=== PATIENT | male | born 1975 | race Caucasian/White ===

== ENCOUNTER 2016-12-21 22:57 | Observation (INO) | payer SELFPAY ==
[~2016-12-21] VITALS: Ht 180.3 cm; Wt 100.0 kg
[~2016-12-21 22:57] MED LIST: CYCL-36 PO; NAPR550 PO; Z.0.NO CURRENT MEDS
[2016-12-21 23:00] VITALS: BP 134/93; PULSE 74; RESP 16; TEMP 98.2; O2SAT 96
[2016-12-21] MEDS ORDERED: NITROGLYCERIN 0.4 MG SL 25 TABS/BTL SL ONE (23:45)
[2016-12-21] MEDS ORDERED: SODIUM CHLORIDE 0.9% FLUSH 10 ML FLUSH IVF PRN (23:45)
[2016-12-21] MEDS ORDERED: NITROGLYCERIN 2% OINT 1 GM PACKET TOP ONE (23:45)
[2016-12-21] MEDS ORDERED: ASPIRIN 81 MG CHEW TAB PO ONE (23:45)
[2016-12-22] VITALS (8 sets, daily range): BP systolic 98–126; BP diastolic 60–78; PULSE 55–76; RESP 16–20; TEMP 96.2–98.6; O2SAT 94–99
[2016-12-22] MEDS ORDERED: LISI-515 PO ×2 (00:14→12:06)
[2016-12-22] MEDS ORDERED: METO25TA3 PO (00:14)
[2016-12-22 00:35] LABS: AUTOMATED NEUTROPHIL # 6.6 TH/MM3 (1.8-7.7); BASOPHIL # 0.1 TH/MM3 (0-0.2); EOSINOPHIL # 0.1 TH/MM3 (0-0.4); EOSINOPHIL % 1.1 % (0.0-4.0); HEMATOCRIT 45.2 % (39.0-51.0); HEMO FLAGS DIFF FINAL; LYMPH % 38.5 % (9.0-44.0); LYMPHOCYTE # 4.7 TH/MM3 (1.0-4.8); MEAN CELL VOLUME 83.1 FL (80.0-100.0); MEAN CORPUSCULAR HEMOGLOBIN 29.2 PG (27.0-34.0); MEAN CORPUSCULAR HGB CONC 35.2 % (32.0-36.0); MONO % 5.4 % (0.0-8.0); PLATELET COUNT 228 TH/MM3 (150-450); RED BLOOD COUNT 5.44 MIL/MM3 (4.50-5.90); RED CELL DISTRIBUTION WIDTH 13.9 % (11.6-17.2); WHITE BLOOD COUNT 12.2 TH/MM3 (4.0-11.0)
[2016-12-22 00:52] LABS: ALT (GPT) 37 U/L (12-78); ANION GAP 9 MEQ/L (5-15); AST (GOT) 16 U/L (15-37); BLOOD UREA NITROGEN 7 MG/DL (7-18); CHLORIDE 104 MEQ/L (98-107); GLOMERULAR FILTRATION RATE 92 ML/MIN (>89); MAGNESIUM 1.9 MG/DL (1.5-2.5); POTASSIUM 3.7 MEQ/L (3.5-5.1); SODIUM (NA) 139 MEQ/L (136-145)
[2016-12-22 00:56] LABS: ALKALINE PHOSPHATASE 76 U/L (45-117); TOTAL BILIRUBIN ADULT 1.2 MG/DL (0.2-1.0)
--- NOTE | 2016-12-22 00:56 | RADRPT ---
EXAM DATE/TIME: 12/22/2016 00:06 [facility] COMPARISON: No previous studies available for comparison. INDICATIONS : Chest pain. MEDICAL HISTORY : None. SURGICAL HISTORY : None. ENCOUNTER: Initial ACUITY: 1 day PAIN SCORE: 7/10 LOCATION: Bilateral chest FINDINGS: A single view of the chest demonstrates the lungs to be symmetrically aerated without evidence of mas s, infiltrate or effusion. The cardiomediastinal contours are unremarkable. Osseous structures are intact. CONCLUSION: No acute disease. Kyle Martinez MD on December 22, 2016 at 0:54 Board Certified Radiologist. This report was verified electronically.
[2016-12-22 00:59] LABS: CREATINE KINASE 80 U/L (39-308)
[2016-12-22 01:20] LABS: APTT (PATIENT) 26.3 SEC (24.3-30.1)
--- NOTE | 2016-12-22 02:56 | PD ---
HPI Chief Complaint: Chest Pain Time Seen by Provider: 23:39 Travel History International Travel<30 days: No Contact w/Intl Traveler<30days: No Traveled to known affect area: No History of Present Illness HPI The patient is a 41 year old male who presents to the [facility] emergency department with a history of chest pain that began earlier today and has been coming and going. He reports that it began approximately 2 hours prior to arrival. The patient reports that the pain is on the left side of his chest and is a tightening sensation. He reports that he has associated shortness of breath. He reports that he has also had increased sweating recently. He denies having any nausea or vomiting. He denies having any radiation of pain. 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 He reports that he was diagnosed with high blood pressure and started on lisinopril and metoprolol and has not had problems since then. He reports that he was under increased stress today. He reports that he has not been sleeping well. The patient denies any recent fevers, cough , congestion, neck pain, abdominal pain, vomiting, diarrhea, urinary symptoms, or neurologic symptoms. [facility] Past Medical History Narrative Medical The patient's past medical history is significant for hypertension, tobacco abuse. He is unsure whether he has a history of hyperlipidemia. Denies having a primary care physician. Cardiovascular Problems: Yes (HTN) Hypertension: Yes Tetanus Vaccination: Unknown Past Surgical History Narrative Surgical The patient's past surgical history is reportedly none. Surgical History: No Previous Surgery Social History Alcohol Use: Yes Tobacco Use: Yes (1 PPD to 1-1/2 packs per day) Substance Use: Yes (mj) Allergies-Medications (Allergen,Severity, Reaction): Coded Allergies: No Known Allergies (Verified , 12/22/16) Reported Meds & Prescriptions Reported Meds & Active Scripts Active Aspirin 325 Mg Tab 81 Mg PO DAILY Reported Lisinopril 20 Mg Tab 20 Mg PO BID Metoprolol Tartrate 25 Mg Tab 25 Mg PO BID Review of Systems General / Constitutional: No: Fever Eyes: No: Visual changes HENT: No: Headaches Cardiovascular: Positive: Chest Pain or Discomfort, Dyspnea on exertion Respiratory: Positive: Shortness of Breath Gastrointestinal: No: Nausea, Vomiting, Abdominal Pain Genitourinary: No: Dysuria Musculoskeletal: No: Pain Skin: No Rash Neurologic: No: Weakness Psychiatric: No: Depression Endocrine: No: Polydipsia Hematologic/Lymphatic: No: Easy Bruising Physical Exam Narrative General: The patient is a well-developed well-nourished male in no acute distress. Head and Neck exam: Head is normocephalic atraumatic. Eyes: EOMI, pupils are equal round and reactive to light. Nose: Midline septum with pink mucous membranes Mouth: Dentition unremarkable. Moist mucus membranes. Posterior oropharynx is not erythematous. No tonsillar hypertrophy. Uvula midline. Airway patent. Neck: No palpable lymphadenopathy. No nuchal rigidity. No thyromegaly. Cardiovascular: Regular rate and rhythm without murmurs, gallops, or rubs. No pulse deficit to the extremities and simultaneous auscultation and palpation of his radial artery. Lungs: Clear to auscultation bilaterally. No wheezes, rhonchi, or rales. Abdomen: Soft, without tenderness to palpation in all 4 quadrants of the abdomen. No guarding, rebound, or rigidity. Normal bowel sounds are audible. Extremities: No clubbing, cyanosis, or edema. 2+ pulses in all 4 extremities. No calf tenderness on palpation. Back: No spinous process tenderness to palpation. No costovertebral angle tenderness to palpation. Neurologic Exam: Grossly nonfocal. Skin Exam: No rash noted. Intact skin that is warm and dry. Data Data Last Documented VS Vital Signs Date Time Temp Pulse Resp B/P Pulse Ox O2 Delivery O2 Flow Rate FiO2 12/22/16 00:11 68 18 126/78 98 Room Air 12/21/16 23:00 98.2 Orders Electrocardiogram (12/21/16 23:03) B-Type Natriuretic Peptide (12/21/16 23:40) Ckmb (Isoenzyme) Profile (12/21/16 23:40) Complete Blood Count With Diff (12/21/16 23:40) Comprehensive Metabolic Panel (12/21/16 23:40) D-Dimer (12/21/16 23:40) Magnesium (Mg) (12/21/16 23:40) Prothrombin Time / Inr (Pt) (12/21/16 23:40) Act Partial Throm Time (Ptt) (12/21/16 23:40) Troponin I (12/21/16 23:40) Lipase (12/21/16 23:40) Chest, Single Ap (12/21/16 23:40) Ecg Monitoring (12/21/16 23:40) Bilateral Bp Monitoring (12/21/16 23:40) Iv Access Insert/Monitor (12/21/16 23:40) Oximetry (12/21/16 23:40) Oxygen Administration (12/21/16 23:40) Aspirin Chew (Aspirin Chew) (12/21/16 23:45) Nitroglycerin 2% Oint (Nitroglycerin 2% (12/21/16 23:45) Sodium Chloride 0.9% Flush (Ns Flush) (12/21/16 23:45) Nitroglycerin Sl (Nitrostat Sl) (12/21/16 23:45) Westergren Sedimentation Rate (12/21/16 23:42) Admit Order (Ed Use Only) (12/22/16 02:26) Labs Laboratory Tests Test 12/22/16 12/22/16 00:05 00:50 White Blood Count 12.2 TH/MM3 Red Blood Count 5.44 MIL/MM3 Hemoglobin 15.9 GM/DL Hematocrit 45.2 % Mean Corpuscular Volume 83.1 FL Mean Corpuscular Hemoglobin 29.2 PG Mean Corpuscular Hemoglobin 35.2 % Concent Red Cell Distribution Width 13.9 % Platelet Count 228 TH/MM3 Mean Platelet Volume 8.6 FL Neutrophils (%) (Auto) 54.0 % Lymphocytes (%) (Auto) 38.5 % Monocytes (%) (Auto) 5.4 % Eosinophils (%) (Auto) 1.1 % Basophils (%) (Auto) 1.0 % Neutrophils # (Auto) 6.6 TH/MM3 Lymphocytes # (Auto) 4.7 TH/MM3 Monocytes # (Auto) 0.7 TH/MM3 Eosinophils # (Auto) 0.1 TH/MM3 Basophils # (Auto) 0.1 TH/MM3 CBC Comment DIFF FINAL Differential Comment Erythrocyte Sedimentation Rate 1 mm/hr Sodium Level 139 MEQ/L Potassium Level 3.7 MEQ/L Chloride Level 104 MEQ/L Carbon Dioxide Level 26.0 MEQ/L Anion Gap 9 MEQ/L Blood Urea Nitrogen 7 MG/DL Creatinine 0.91 MG/DL Estimat Glomerular Filtration 92 ML/MIN Rate Random Glucose 85 MG/DL Calcium Level 9.1 MG/DL Magnesium Level 1.9 MG/DL Total Bilirubin 1.2 MG/DL Aspartate Amino Transf 16 U/L (AST/SGOT) Alanine Aminotransferase 37 U/L (ALT/SGPT) Alkaline Phosphatase 76 U/L Total Creatine Kinase 80 U/L Troponin I LESS THAN 0.02 NG/ML B-Type Natriuretic Peptide 5 PG/ML Total Protein 6.9 GM/DL Albumin 3.8 GM/DL Lipase 231 U/L Prothrombin Time 11.0 SEC Prothromb Time International 1.0 RATIO Ratio Activated Partial 26.3 SEC Thromboplast Time D-Dimer Quantitative (PE/DVT) 0.27 MG/L [facility] Medical Decision Making Medical Screen Exam Complete: Yes Emergency Medical Condition: Yes Medical Record Reviewed: Yes Interpretation(s) Last Impressions Myocardial Perfusion Scan Nuc Med 12/22/16 0000 Signed Impressions: Service Date/Time: Thursday, December 22, 2016 10:39 - CONCLUSION: Redistribution consistent with stress due to ischemia in the inferior wall with corresponding wall motion abnormality. RISK CATEGORY: Low to intermediate. Corby Hansen MD FACR Chest X-Ray 12/21/16 2340 Signed Impressions: Service Date/Time: Thursday, December 22, 2016 00:06 - CONCLUSION: No acute disease. Kyle Martinez MD Differential Diagnosis Acute coronary syndrome, versus pulmonary embolism, versus pneumonia, versus pleurisy, versus anxiety disorder, versus costochondritis, versus acid reflux Narrative Course During the course of the patients emergency department visit, the patients history, examination, and differential diagnosis were reviewed with the patient. The patient had IV access obtained and blood work sent for analysis. The patient was placed on a personnel monitor with oximetry and blood pressure monitoring. An EKG was done on arrival. The patient's EKG reveals a sinus rhythm heart rate of 73, moderate intraventricular conduction delay with a QRS duration of 115 milliseconds, nonspecific ST and T-wave abnormalities, no acute ST segment elevation is noted, T waves are slightly depressed in lead 2,3,and aVF. The patient was provided aspirin 162 mg by mouth 1. The patient was given nitroglycerin sublingual 1, nitroglycerin 1 inch to the chest wall. The patient reports that he is chest pain-free. The patients laboratory studies were reviewed and remarkable for a d-dimer that is within normal limits, decreasing the likelihood of pulmonary embolism in this patient with no other significant risk factors. Sedimentation rate is 1 , CBC is remarkable for a white count of 12.2, otherwise unremarkable, CMP is remarkable for a total bilirubin of 1.2. Initial set of cardiac enzymes are negative. Lipase within normal limits. PT PTT is unremarkable. Radiology studies were reviewed and remarkable for a chest x-ray that is unremarkable. The patient is agreeable with the plan to proceed with admission to the chest pain center for a rule out serial cardiac enzyme protocol and consideration of stress testing to follow. The patients results were discussed with the patient, including the plan of care. I explained that further testing and/ or monitoring is indicated based on the patients history, examination, and/ or laboratory findings. Therefore, I recommended admission for additional evaluation. The patient expressed understanding and was agreeable with this plan. The patient was admitted to the hospital in stable condition and sent to a bed under the care of the chest pain center. Diagnosis Primary Impression: Chest pain, rule out acute myocardial infarction Admitting Information Admitting Physician Requests: Observation Scripts Aspirin 325 Mg Tab81 Mg PO DAILY #90 TAB Ref 0 Prov:Richard Joshua DO 12/22/16 Judie Arango MD Dec 22, 2016 02:56
[2016-12-22] MEDS ORDERED: ONDANSETRON HCL 4 MG/2 ML VIAL IV PRN (03:45)
[2016-12-22] MEDS ORDERED: ACETAMINOPHEN 500 MG CPLT PO PRN (03:45)
[2016-12-22] MEDS ORDERED: SODIUM CHLORIDE 0.9% FLUSH 10 ML FLUSH IV FLUSH PRN (03:45)
[2016-12-22 04:06] LABS: CREATINE KINASE 71 U/L (39-308)
[2016-12-22] MEDS: NITROGLYCERIN 2% OINT 1 GM PACKET TOP SCH ×2 (06:30→13:34)
[2016-12-22 06:59] LABS: CREATINE KINASE 61 U/L (39-308)
[2016-12-22] MEDS ORDERED: SODIUM CHLORID 0.9% 500 ML INJ 500 ML IV ONE (07:45)
--- NOTE | 2016-12-22 07:52 | HHI.HP ---
HPI Primary Care Physician No Primary Care Physician Chief Complaint Chest pain History of Present Illness This is a 41-year-old male that presents to ED via private vehicle complaining of developing a central/left-sided chest tightness. He began around 7:00 last evening. He states is under stressful situation but does not elaborate. It persisted for 4 hours. He states it was essentially resolved by time he arrived in the ED. He complained of also associated shortness of breath. Denies nausea or diaphoresis. States he had a stress test for physical a few years ago and that was okay. 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 He states that he is compliant with his blood pressure medications. Denies any knowledge of hyperlipidemia. There is family history of CAD with his mother having stents. Denies recent illness. Denies fevers or chills. He found nothing to worsen or improve symptoms when he had them. Review of Systems General: Patient denies fevers, chills recent, and recent travel HEENT: Patient denies headache, sore throat, difficulty swallowing. Cardiovascular: Has the chest discomfort as mentioned above. Denies sensation of heart beating rapidly or irregularly. No syncope. Denies diaphoresis. Respiratory: Patient was initially short of breath. Denies inspirational chest discomfort. Denies coughing wheezing or hemoptysis. GI: Patient denies nausea, vomiting, diarrhea, abdominal pain, bloody stools. Musculoskeletal: Patient denies joint pain or edema. Denies calf pain or edema. Neurovascular: Patient denies numbness, tingling, weakness in extremities. Denies headache. Endocrine: Denies polyuria and polydipsia. Hematologic: Denies easy bruising. Skin: Denies rash or itching. Past Family Social History Allergies: Coded Allergies: No Known Allergies (Verified , 10/25/09) Past Medical History Hypertension and tobacco abuse. Denies hyperlipidemia, diabetes, and known CAD. Past Surgical History Noncontributory Reported Medications Reported Meds & Active Scripts Active Reported Metoprolol Tartrate 25 Mg Tab 25 Mg PO DAILY Lisinopril 20 Mg Tab 20 Mg PO DAILY Active Ordered Medications Current Medications Medications (Trade) Dose Ordered Sig/Corina Route Start Time Stop Time Status Last Admin (NS Flush) 2 ml UNSCH PRN IVF 12/21/16 23:45 12/22/16 00:18 (NS Flush) 2 ml UNSCH PRN IV FLUSH 12/22/16 03:45 12/22/16 07:29 (Tylenol) 500 mg Q4H PRN PO 12/22/16 03:45 12/22/16 07:29 (Zofran Inj) 4 mg Q6H PRN IV 12/22/16 03:45 (Protonix) 40 mg DAILY PO 12/22/16 09:00 12/22/16 07:29 (Nitroglycerin 2% Oint) 1 inch Q6HR TOP 12/22/16 06:00 12/22/16 06:30 Aspirin 325 mg 325 mg DAILY PO 12/22/16 09:00 12/22/16 07:29 (NS 500 ml Inj) 500 ml @ 1,000 mls/hr NOW ONCE IV 12/22/16 07:45 12/22/16 08:14 UNV Family History His mother has stents. Social History Patient smokes 1-1/2 pack of cigarettes daily for approximately 20 years. Has occasional alcohol. Has been known to use marijuana at times. Physical Exam Vital Signs Vital Signs Date Time Temp Pulse Resp B/P Pulse Ox O2 Delivery O2 Flow Rate FiO2 12/22/16 07:23 97.8 76 18 98/60 99 Room Air 12/22/16 07:20 76 18 99 Room Air 12/22/16 07:20 18 99 Room Air 12/22/16 06:31 72 16 102/65 98 Room Air 12/22/16 03:46 95 21 12/22/16 03:00 71 16 115/72 96 Room Air 12/22/16 00:11 68 18 126/78 98 Room Air 12/21/16 23:00 98.2 74 16 134/93 96 Room Air Physical Exam GENERAL: This is a well-nourished, well-developed patient, in no apparent distress. Patient speaks in clear complete sentences. Patient is pleasant. HEENT: Head is atraumatic and normocephalic. Neck is supple without lymphadenopathy and trachea is midline. No JVD or carotid bruits. CARDIOVASCULAR: Regular rate and rhythm without murmurs, gallops, or rubs. RESPIRATORY: Clear to auscultation. Breath sounds equal bilaterally. No wheezes , rales, or rhonchi. Chest wall is nontender. No use of accessory muscles. GASTROINTESTINAL: Abdomen is nontender, nondistended. Abdomen soft. No obvious pulsatile mass or bruit. No CVA tenderness. Strong femoral pulses bilaterally. Normal bowel sounds in all quadrants. MUSCULOSKELETAL: Patient is moving upper and lower extremities freely. No calf tenderness or edema, no Homans sign. Strong pulses in upper and lower extremities. NEUROLOGICAL: Patient is alert and oriented. Cranial nerves 2-12 are grossly intact. No focal deficits and speech is clear. SKIN: No rash and turgor is normal. Laboratory Laboratory Tests Test 12/22/16 12/22/16 12/22/16 12/22/16 00:05 00:50 03:15 06:25 White Blood Count 12.2 Red Blood Count 5.44 Hemoglobin 15.9 Hematocrit 45.2 Mean Corpuscular Volume 83.1 Mean Corpuscular Hemoglobin 29.2 Mean Corpuscular Hemoglobin 35.2 Concent Red Cell Distribution Width 13.9 Platelet Count 228 Mean Platelet Volume 8.6 Neutrophils (%) (Auto) 54.0 Lymphocytes (%) (Auto) 38.5 Monocytes (%) (Auto) 5.4 Eosinophils (%) (Auto) 1.1 Basophils (%) (Auto) 1.0 Neutrophils # (Auto) 6.6 Lymphocytes # (Auto) 4.7 Monocytes # (Auto) 0.7 Eosinophils # (Auto) 0.1 Basophils # (Auto) 0.1 CBC Comment DIFF FINAL Differential Comment Erythrocyte Sedimentation Rate 1 Sodium Level 139 Potassium Level 3.7 Chloride Level 104 Carbon Dioxide Level 26.0 Anion Gap 9 Blood Urea Nitrogen 7 Creatinine 0.91 Estimat Glomerular Filtration 92 Rate Random Glucose 85 Calcium Level 9.1 Magnesium Level 1.9 Total Bilirubin 1.2 Aspartate Amino Transf 16 (AST/SGOT) Alanine Aminotransferase 37 (ALT/SGPT) Alkaline Phosphatase 76 Total Creatine Kinase 80 71 61 Troponin I LESS THAN 0.02 LESS THAN 0.02 LESS THAN 0.02 B-Type Natriuretic Peptide 5 Total Protein 6.9 Albumin 3.8 Lipase 231 Prothrombin Time 11.0 Prothromb Time International 1.0 Ratio Activated Partial 26.3 Thromboplast Time D-Dimer Quantitative (PE/DVT) 0.27 Result Diagram: 12/22/16 0005 12/22/16 0005 Imaging Last 24 hours Impressions Chest X-Ray 12/21/16 2340 Signed Impressions: Service Date/Time: Thursday, December 22, 2016 00:06 - CONCLUSION: No acute disease. Kyle Martinez MD Course EKGs have diffuse ST-T changes are nonspecific. Assessment and Plan Assessment and Plan * Chest pain: Patient has had serial cardiac enzymes that have had normal troponins 3. His EKG is abnormal. He has been seen by Dr. David Noriega of cardiology in the chest pain center and will undergo a nuclear ETT. Further plan pending the results of the stress test. * Hypertension: Continue current medication. * Tobacco abuse: Patient has been counseled on the importance of smoking cessation. Tahir Cortez Dec 22, 2016 07:52
[2016-12-22] MEDS ORDERED: IOHEXOL 350 MG/ML 50 ML BTL (for Cath Lab) OTHER ONE (08:25)
[2016-12-22] MEDS ORDERED: IOHEXOL 350 MG/ML 100 ML BTL (for Cath Lab) OTHER ONE (08:25)
[2016-12-22] MEDS ORDERED: ASPIRIN 325 MG TAB PO SCH (09:00)
[2016-12-22] MEDS ORDERED: PANTOPRAZOLE SOD 40 MG DELAYED RELEASE TAB PO SCH (09:00)
[2016-12-22] MEDS ORDERED: LISINOPRIL 20 MG TAB PO SCH (12:00)
--- NOTE | 2016-12-22 12:38 | RADRPT ---
EXAM DATE/TIME: 12/22/2016 10:39 [facility] COMPARISON: No previous studies available for comparison. INDICATIONS : Left chest pain with dyspnea for 1 day. Angina DOSE: 35 mCi Tc99m Myoview at stress 11 mCi Tc99m Myoview at rest REST HEART RATE: 80 BPM TARGET HEART RATE: 153 BPM MAX HEART RATE: 171 BPM REST BLOOD PRESSURE: 112/68 mmHg MAX BLOOD PRESSURE: 172/70 mmHg EJECTION FRACTION: 50% MEDICAL HISTORY : Hypertension. Smoker. SURGICAL HISTORY : None. ENCOUNTER: Initial ACUITY: 1 day PAIN SCALE: 5/10 LOCATION: Left chest TECHNIQUE: The patient underwent upright treadmill exercise in the chest pain center. Continuous ECG tracing wa s monitored during stress. Gated SPECT imaging was performed after stress, and conventional SPECT im aging was performed at rest. The examination was performed on a SPECT/CT scanner, both attenuation-c orrected and non-corrected datasets were reviewed. FINDINGS: DISTRIBUTION: The maximum perfused segment at stress is in the anterior wall. PERFUSION STUDY: There is minimal redistribution inferior wall towards the base.Moderate gut activity does obscure par t of the the inferior wall. GATED STUDY: There is air depressed ejection fraction of 50% with minimal inferior wall hypokinesis. CONCLUSION: Redistribution consistent with stress due to ischemia in the inferior wall with corresponding wall mo tion abnormality. RISK CATEGORY: Low to intermediate. Corby Hansen MD FACR on December 22, 2016 at 12:34 Board Certified Radiologist. This report was verified electronically.
[2016-12-22] MEDS ORDERED: METOPROLOL TARTRATE 25 MG TAB PO SCH (13:00)
[2016-12-22] MEDS ORDERED: ATORVASTATIN 40 MG TAB PO SCH (13:15)
--- NOTE | 2016-12-22 13:25 | EKG ---
Date Performed: 12/21/2016 Time Performed: 23:07:58 PTAGE: 41 years EKG: Sinus rhythm MODERATE INTRAVENTRICULAR CONDUCTION DELAY NONSPECIFIC ST & T-WAVE ABNORMALITY BORDERLINE ECG NO PREVIOUS TRACING DOCTOR: David Noriega Interpretating Date/Time 12/22/2016 13:22:28
--- NOTE | 2016-12-22 13:25 | EKG ---
Date Performed: 12/22/2016 Time Performed: 03:12:04 PTAGE: 41 years EKG: Sinus rhythm ST DEVIATION AND MODERATE T-WAVE ABNORMALITY, CONSIDER INFERIOR ISCHEMIA ABNORMAL ECG PREVIOUS TRACING : 12/21/2016 23.07 Since previous tracing, no significant change noted DOCTOR: David Noriega Interpretating Date/Time 12/22/2016 13:22:38
--- NOTE | 2016-12-22 13:26 | EKG ---
Date Performed: 12/22/2016 Time Performed: 06:13:41 PTAGE: 41 years EKG: SINUS BRADYCARDIA BORDERLINE RIGHT AXIS DEVIATION ABNORMAL ECG PREVIOUS TRACING : 12/22/2016 03.12 Since previous tracing, ST changes have resolved DOCTOR: David Noriega Interpretating Date/Time 12/22/2016 13:23:48
--- NOTE | 2016-12-22 13:40 | HHI.PR ---
Subjective Remarks resting comfortably with no distress. has mild left chest discomfort. d/w the RN and no acute issues over night. Objective Vitals Vital Signs Date Time Temp Pulse Resp B/P Pulse Ox O2 Delivery O2 Flow Rate FiO2 12/22/16 08:46 98.6 55 20 110/67 94 12/22/16 07:23 97.8 76 18 98/60 99 Room Air 12/22/16 07:20 76 18 99 Room Air 12/22/16 07:20 18 99 Room Air 12/22/16 06:31 72 16 102/65 98 Room Air 12/22/16 03:46 95 21 12/22/16 03:00 71 16 115/72 96 Room Air 12/22/16 00:11 68 18 126/78 98 Room Air 12/21/16 23:00 98.2 74 16 134/93 96 Room Air Result Diagram: 12/22/16 0005 12/22/16 0005 Imaging Last Impressions Chest X-Ray 12/21/16 2340 Signed Impressions: Service Date/Time: Thursday, December 22, 2016 00:06 - CONCLUSION: No acute disease. Kyle Martinez MD Objective Remarks GENERAL: This is a well-nourished, well-developed patient, in no apparent distress. CARDIOVASCULAR: Regular rate and regular rhythm without murmurs, gallops, or rubs. RESPIRATORY: Clear to auscultation. Breath sounds equal bilaterally. No wheezes , rales, or rhonchi. GASTROINTESTINAL: Abdomen soft, non-tender, nondistended. Normal, active bowel sounds MUSCULOSKELETAL: Extremities without clubbing, cyanosis, or edema. NEURO: Alert & Oriented x4 to person, place, time, situation. Moves all ext x4 Medications and IVs Current Medications Aspirin (Aspirin Chew) 162 mg ONCE ONCE PO Last administered on 12/22/16 00: 18; Start 12/21/16 at 23:45; Stop 12/21/16 at 23:50; Status DC Nitroglycerin (Nitroglycerin 2% Oint) 1 inch ONCE ONCE TOP Last administered on 12/22/16 00:18; Start 12/21/16 at 23:45; Stop 12/21/16 at 23:50; Status DC Sodium Chloride (NS Flush) 2 ml UNSCH PRN IVF FLUSH AFTER USING IV ACCESS Last administered on 12/22/16 00:18; Start 12/21/16 at 23:45 Nitroglycerin (Nitrostat Sl) 0.4 mg ONCE ONCE SL ; Start 12/21/16 at 23:45; Stop 12/21/16 at 23:50; Status DC Sodium Chloride (NS Flush) 2 ml UNSCH PRN IV FLUSH FLUSH AFTER USING IV ACCESS Last administered on 12/22/16 07:29; Start 12/22/16 at 03:45 Acetaminophen (Tylenol) 500 mg Q4H PRN PO HEADACHE Last administered on 07:29; Start 12/22/16 at 03:45 Ondansetron HCl (Zofran Inj) 4 mg Q6H PRN IV NAUSEA; Start 12/22/16 at 03:45 Pantoprazole Sodium (Protonix) 40 mg DAILY PO Last administered on 12/22/16 07 :29; Start 12/22/16 at 09:00 Nitroglycerin (Nitroglycerin 2% Oint) 1 inch Q6HR TOP Last administered on 12/22 06:30; Start 12/22/16 at 06:00 Aspirin 325 mg 325 mg DAILY PO Last administered on 12/22/16 07:29; Start at 09:00 Sodium Chloride (NS 500 ml Inj) 500 ml @ 1,000 mls/hr NOW ONCE IV Last administered on 12/22/16 09:38; Start 12/22/16 at 07:45; Stop 12/22/16 at 08:22 ; Status DC Lisinopril (Prinivil) 20 mg DAILY PO ; Start 12/22/16 at 12:00; Stop 12/22/16 at 12:01; Status DC Metoprolol Tartrate (Lopressor) 25 mg BID PO ; Start 12/22/16 at 13:00 Atorvastatin Calcium (Lipitor) 40 mg DAILY PO ; Start 12/22/16 at 13:15 A/P Assessment and Plan A/P - chest pain with abnormal stress test; ischemia in the inferior wall cardiac enzymes negative. continue aspirin, BB and statin- cardiology consulted -hypertension- controlled- will continue BB Norman Santamaria MD Dec 22, 2016 13:40
[2016-12-22] MEDS ORDERED: MIDAZOLAM HCL 2 MG/2 ML VIAL ONE (15:27)
[2016-12-22] MEDS ORDERED: HEPARIN-NS/PF INJ 500 ML ONE ×2 (15:27→15:28)
[2016-12-22] MEDS ORDERED: VERAPAMIL HCL 5 MG/2 ML VIAL ONE (15:28)
[2016-12-22] MEDS ORDERED: NITROGLYCERIN INJ 5 ML ONE (15:28)
[2016-12-22] MEDS ORDERED: HEPARIN SODIUM - IV 10,000 UNITS/10 ML VIAL ONE (15:28)
[2016-12-22] MEDS ORDERED: MISC INFORMATION XX ONE (16:45)
[2016-12-22] MEDS ORDERED: ASPI325T PO (18:15)
--- NOTE | 2016-12-22 18:17 | HHI.DS ---
Discharge Summary Admission Date Dec 22, 2016 at 02:28 Discharge Date: Dec 22, 2016 Admitting Diagnosis cp, r/o CO (1) Chest pain, rule out acute myocardial infarction Diagnosis: Principal (2) Mild CAD Diagnosis: Principal Procedures Left heart cath (12/22/16) LM normal, LAD normal, LCx normal. RCA normal, PDA 40 % (IFR 1.0) CBC/BMP: 12/22/16 0005 12/22/16 0005 Significant Findings Laboratory Tests Test 12/22/16 12/22/16 12/22/16 00:05 03:15 06:25 White Blood Count 12.2 TH/MM3 (4.0-11.0) Total Bilirubin 1.2 MG/DL (0.2-1.0) Troponin I LESS THAN 0.02 LESS THAN 0.02 LESS THAN 0.02 NG/ML NG/ML NG/ML (0.02-0.05) (0.02-0.05) (0.02-0.05) Pt Condition on Discharge: Good Discharge Disposition: Discharge Home Richard Joshua DO Dec 22, 2016 18:17
--- NOTE | 2016-12-22 19:01 | EC ---
Study Study Date:12/22/2016 STUDY CONCLUSIONS SUMMARY LEFT VENTRICLE: The cavity size was normal. Systolic function was normal. The estimated ejection fraction was in the range of 55% to 60%. Although no diagnostic regional wall motion abnormality was identified, this possibility cannot be completely excluded on the basis of this study. If LV function is below 40, please consider prescribing an ACEI or ARB or document rationale for non-use. PROCEDURE DATA STUDY STATUS: Elective. Procedure: Transthoracic echocardiography. Image quality was good. Scanning was performed from the parasternal, apical, and subcostal acoustic windows. Study completion: The patient tolerated the procedure well. Transthoracic echocardiography. M-mode, complete 2D, complete spectral Doppler, and color Doppler. Patient status: Inpatient. CARDIAC ANATOMY LEFT VENTRICLE: The cavity size was normal. Systolic function was normal. The estimated ejection fraction was in the range of 55% to 60%. Although no diagnostic regional wall motion abnormality was identified, this possibility cannot be completely excluded on the basis of this study. AORTIC VALVE: The valve appears to be grossly normal. Trileaflet. Doppler: There was no stenosis. No significant regurgitation. Valve area: 2.18cm^2 (Vmax). MITRAL VALVE: The valve appears to be grossly normal. Doppler: There was no evidence for stenosis. No significant regurgitation. Peak gradient: 2mm Hg (D). LEFT ATRIUM: The atrium was normal in size. PULMONIC VALVE: Not well visualized. Doppler: There was no evidence for stenosis. No significant regurgitation. TRICUSPID VALVE: The valve appears to be grossly normal. Doppler: There was no evidence for stenosis. No significant regurgitation. BASIC MEASUREMENTS ADULT NORMAL Left ventricle LV internal dimension, ED, chordal level, 48.8 mm 43-52 PLAX LV internal dimension, ES, chordal level, 37.1 mm 23-38 PLAX Fractional shortening, chordal level, PLAX *24 % >29 LV posterior wall thickness, ED 8.45 mm IVS/LVPW ratio, ED 1 <1.3 Ventricular septum Septal thickness, ED 8.43 mm Aortic valve Leaflet separation 22 mm 15-26 BASIC MEASUREMENTS ADULT NORMAL Aortic valve Leaflet separation 22 mm 15-26 Aorta Root diameter, ED 28 mm 20-37 Left atrium Anterior-posterior dimension, ES 34 mm 19-40 LA/aortic root ratio 1.21 DOPPLER MEASUREMENTS ADULT NORMAL Aortic valve Peak velocity, S 113 cm/s Valve area, Vmax 2.18 cm^2 Mitral valve Peak E-wave velocity 71.6 cm/s Peak A-wave velocity 66.6 cm/s Deceleration time 222 ms 150-230 Peak gradient, D 2 mm Hg Peak E/A ratio 1.1 Pulmonic valve Peak velocity, S 81.4 cm/s LEGEND: Mean values are shown as u=mean value. Asterisk (*) bowie values outside specified normal range. Prepared and signed by Richard Joshua [id number]
--- NOTE | 2016-12-23 06:09 | MB ---
cc: RICHARD DYE DO DATE OF CONSULTATION December 22, 2016 REASON FOR CONSULTATION Chest pain. HISTORY OF PRESENT ILLNESS Sohail Clark is a pleasant 41-year-old male who presents to [facility] on December 22, 2016, after developing left-sided chest pain. The chest pain began around 07:00 p.m. the night before. He has been under a lot of stress from both work and family situations. The chest pain persisted for four hours so he thought he should come to the emergency room. He was actually somewhat forced by friends and family to come in. He has also noticed that he has had this pain occasionally when he gets under stress and a little more anxious of work over the past few weeks. He feels that it is somewhat associated with shortness of breath but it is difficult because he feels very anxious with the pain. He denies nausea or diaphoresis with the pain. He had a stress test a few years ago that he states was okay but it was an exercise stress test without nuclear imaging. He has not followed up with a special procedures tech since. In seeing him today, he states that he has no chest pain or shortness of breath. He underwent exercise nuclear stress testing achieving a heart rate of 95% of max predicted, and a total exercise time of 10.3 minutes. The nuclear portion showed possible ischemia of the inferior wall. Because of this, I was asked to see him in consideration of cardiac catheterization. PAST MEDICAL HISTORY 1. Hypertension. 2. Tobacco abuse. PAST SURGICAL HISTORY Denies. ALLERGIES No known drug allergies. MEDICATIONS 1. Metoprolol tartrate 25 mg daily. 2. Lisinopril 20 mg daily. SOCIAL HISTORY The patient smokes 1-1/2 packs of cigarettes daily for approximately 20 years. He occasionally drinks alcohol. He uses marijuana two to three times per month. FAMILY HISTORY Denies premature coronary artery disease or sudden cardiac within the family. REVIEW OF SYSTEMS Fourteen systems were reviewed including osteopathic pertinent positives and negatives above, otherwise negative. PHYSICAL EXAMINATION VITAL SIGNS: Temperature 96.8, heart rate 55, blood pressure 110/67, respirations 20, pulse ox 94% on room air. IN GENERAL: The patient appears well, in no acute distress. Alert, awake and oriented x 3. Extraocular muscles intact. Mucous membranes moist. NECK: Supple. No JVD at 45 degrees. No carotid bruits heard bilaterally. Carotid upstroke is brisk in nature. HEART: Regular rate and rhythm. Positive first and second heart sounds. No murmurs, gallops or rubs. PMI is nondisplaced. LUNGS: Clear to auscultation bilaterally. No wheezes, rales or rhonchi. ABDOMEN: Soft, nontender, nondistended. No organomegaly noted. EXTREMITIES: N clubbing, cyanosis or edema. Femoral and distal pulses intact bilaterally. NEUROLOGICALLY: No focal deficits. SKIN: Warm, dry and intact. OSTEOPATHIC EXAM: No kyphoscoliosis, scoliosis, lordosis or paraspinal tender points. LABORATORY FINDINGS Hemoglobin 15.9, hematocrit 45.2, platelets 228. D-dimer 0.27. Potassium 3.7, BUN 7, creatinine 0.91. Troponin negative x 3. BNP 5. ELECTROCARDIOGRAM Sinus bradycardia at 56 beats per minute, borderline right axis deviation, nonspecific ST-T wave changes. IMPRESSIONS 1. Chest pain, atypical for coronary insufficiency. 2. Exercise nuclear stress test showing possible inferior ischemia. 3. History of hypertension. RECOMMENDATIONS 1. Sohail appears to have atypical chest pain but had an exercise nuclear stress test showing possible ischemia in the inferior region. Because of this, it is felt that he should undergo cardiac catheterization. 2. Risks, benefits, alternatives were explained to him and he consented as such. 3. Further recommendations will be made after coronary visualization. 4. I spoke to him for greater than 3 minutes about tobacco cessation which he is willing to least try to decrease his amount of tobacco abuse. Thank you for allowing me to see Sohail Clark. If there are any questions, please do not hesitate to call. Richard Dye DO VGP/SSB /10:38 PM /5:56 AM
--- NOTE | 2016-12-23 06:31 | MA ---
cc: RICHARD DYE DO DATE December 22, 2016 PROCEDURE PERFORMED Left heart catheterization, coronary angiogram, IFR of PDA. Moderate sedation for 30 minutes PREPROCEDURE DIAGNOSIS Chest pain, abnormal stress test. POSTPROCEDURE DIAGNOSIS Mild coronary artery disease. MEDICATIONS 1. Versed 1 mg. 2. Fentanyl 15 mcg. 3. Verapamil 2.5 mg. 4. Nitro 200 mcg. 5. Heparin 9000 units. CONTRAST USED 120 cc. FLUOROSCOPY 7.4 minutes. SEDATION Moderate sedation given for 30 minutes. PROCEDURAL SUMMARY Sohail Clark is a pleasant 41-year-old male who presented with chest pain which is atypical for coronary insufficiency. Because of this he underwent exercise nuclear stress testing. During this he was found to have possible inferior ischemia. Because of this it was felt that he should undergo cardiac catheterization. The risks, benefits and alternatives were explained to him and he consented as such. He was brought to the lab and prepped in the usual sterile fashion. The right radial artery was accessed using a modified Seldinger technique and placement of a slender 5/6 sheath. This was easily aspirated and flushed. JR-4 was advanced over a J-wire to the ascending aorta and across the aortic valve. LVEDP was measured at 10. This was pulled back across the aortic valve showing no significant gradient of aortic stenosis. JR-4 was then used for selective angiography of the right coronary artery which is a dominant vessel. There is mild luminal irregularities throughout the RCA and a 40% lesion in the ostium of the PDA. JR-4 was then exchanged for a JL-3.5. This was used for selective angiography of the left coronary system. The left main is a normal-appearing vessel that bifurcates into an LAD and circumflex. The LAD has a mild 10% lesion in the midportion but otherwise no significant disease. It gives off two large diagonals which have no significant disease. The circumflex is a normal-appearing vessel that has a 20% lesion in the midportion. It gives off two major obtuse marginals that have no significant disease. Because the patient had a an abnormal stress test showing ischemia in the anterior portion with an intermediate lesion, I felt that this should be further evaluated with IFR. The JL-3.5 was exchanged for a JR-4 guide. The patient was given additional heparin for anticoagulation. A CloudFloor wire goes then advanced to the distal portion of the PDA. IFR was measured twice showing a value of 1.0, showing no significant physiologic stenosis. [place] wire was then pulled back. Final shot shows no significant destruction of the RCA. JR-4 guide was then removed over a J-wire. A TR band was then placed over the radial arteriotomy site to create hemostasis. The patient left the lab support technician cardiovascularly stable. IMPRESSIONS 1. Chest pain atypical for coronary insufficiency. 2. Exercise nuclear stress test showing possible inferior ischemia. 3. Mild coronary artery disease by cardiac catheterization (December 22, 2016) with a 30-40% lesion in the ostium of the PDA. RECOMMENDATIONS 1. It appears that Sohail's chest pain is noncoronary in nature. 2. We will plan on checking an echocardiogram and if nothing significant is found he may be discharged 1 hour after his TR band is removed. 3. I instructed him that he should not lift more than 10 pounds for the next three days. 4. I reinforced that he needs to discontinue his tobacco abuse. 5. He should follow up with his primary care physician in the next two weeks. 6. We will place him on aspirin 81 mg daily as he does have mild coronary artery disease. Thank you for allowing me to see Sohail Clark. If there are any questions please do not hesitate to call. Richard Dye DO VGP/SSB /10:48 PM /6:19 AM
--- NOTE | 2016-12-23 14:39 | TR ---
Date Performed: 12/22/2016 Time Performed: 11:29:53 DOCTOR: Zakiya Bailon DRUG LIST: CLINICAL HISTORY: CP/ R/0 [place] REASON FOR TEST: REASON FOR ENDING: OBSERVATION: CONCLUSION: YVETTE PROTOCOL NUCLEAR ETT. NO CP. MILD SOB.Maximum WX=723 % Max HR Achieved=95.0% M aximum OD=382/70 Total Exercise Time=10:31 COMMENTS:
== END 2016-12-22 18:18 | disposition home or self-care (01) ==
LOC: NEPE 22:57 → NEDA 12-22 02:28 → NEPGCP 12-22 07:56 → HCIS 12-22 16:04
PROVIDERS: ADMIT Internal Medicine; ATTEND Internal Medicine
DX: I25.10 Atherosclerotic heart disease of native coronary artery without angina pectoris (principal); I10 Essential (primary) hypertension; R06.02 Shortness of breath; F17.210 Nicotine dependence, cigarettes, uncomplicated; F12.90 Cannabis use, unspecified, uncomplicated; Z79.82 Long term (current) use of aspirin; Z82.49 Family history of ischemic heart disease and other diseases of the circulatory system; R79.89 Other specified abnormal findings of blood chemistry
CPT/HCPCS: 71010; 78452; 80053; 82550; 83690; 83735; 83880; 84484; 85025; 85379; 85610; 85652; 85730; 93005; 93017; 93306; 93454; 93571; 99285; A9502; C1769; C1887; C1893; G0378; J1644; J2250; J3010; J7040; Q9967